=== PATIENT | male | born 1980 | race Caucasian/White ===

== ENCOUNTER 2017-05-09 11:02 | Emergency (ER) | payer MEDICAID ==
[2017-05-09 11:23] VITALS: BP 151/70
--- NOTE | 2017-05-09 11:24 | UC ---
Upper Extremity HPI - HPI Summary HPI Summary: 36 YEAR OLD MALE PRESENTS WITH COMPLAINS OF RIGHT ARM PAIN AFTER FALLING. - History of Current Complaint Chief Complaint: UCUpperExtremity Stated Complaint: RIGHT ARM INJURY Time Seen by Provider: 05/09/17 11:24 Hx Obtained From: Patient ?: Yes Onset/Duration: Sudden Onset Severity Initially: Moderate Severity Currently: Moderate Pain Scale Used: 0-10 Numeric - 5 - Allergies/Home Medications Allergies/Adverse Reactions: Allergies Allergy/AdvReac Type Severity Reaction Status Date / Time No Known Allergies Allergy Verified 05/09/17 11:18 Home Medications: Home Medications Ibuprofen [Advil] 400 mg PO ONCE PRN 05/09/17 [History Confirmed 05/09/17] PMH/Surg Hx/FS Hx/Imm Hx Previously Healthy: Yes - Surgical History Surgical History: Yes Surgery Procedure, Year, and Place: left shoulder operation 6 yrs ago - Family History Known Family History: Positive: Cardiac Disease - Social History Alcohol Use: Occasionally Alcohol Amount: a few beers daily Substance Use Type: None Smoking Status (MU): Heavy Every Day Tobacco Smoker Amount Used/How Often: 1 ppd Length of Time of Smoking/Using Tobacco: started about age 19 Review of Systems Constitutional: Negative Skin: Negative Eyes: Negative ENT: Negative Respiratory: Negative Cardiovascular: Negative Gastrointestinal: Negative Genitourinary: Negative Motor: Negative Neurovascular: Negative Musculoskeletal: Decreased ROM, Other: - RIGHT ELBOW PAIN Neurological: Negative Psychological: Negative All Other Systems Reviewed And Are Negative: Yes Physical Exam Triage Information Reviewed: Yes Appearance: Pain Distress Vital Signs: Initial Vital Signs Temp 37.1 C 05/09/17 11:19 Pulse 92 05/09/17 11:19 Resp 18 05/09/17 11:19 BP 151/70 05/09/17 11:19 Pulse Ox 97 05/09/17 11:19 Vital Signs Reviewed: Yes Eye Exam: Normal ENT Exam: Normal Dental Exam: Normal Neck exam: Normal Neck: Positive: 1 Respiratory Exam: Normal Cardiovascular Exam: Normal Abdominal Exam: Normal Musculoskeletal: Positive: Other: - RIGHT ELBOW PAIN Neurological Exam: Normal Psychological Exam: Normal Skin Exam: Normal Upper Extremity Course/Dx - Course Course Of Treatment: radiology report reviwed and radial head fx results discussed with patient with orthopedic f/u - Differential Dx/Diagnosis Provider Diagnoses: RIGHT ELBOW PAIN WITH RADIAL HEAD FRACTURE. Discharge - Discharge Plan Condition: Stable Disposition: HOME Prescriptions: Acetaminop/Codeine 30 MG TAB* [Tylenol/Codeine 30 MG TAB*] 1 tab PO Q8H PRN #9 tab MDD 3 PRN Reason: Pain Ibuprofen TAB* [Motrin TAB* 800 MG] 800 mg PO Q6H #30 tab Patient Education Materials: Elbow Fracture (ED) Referrals: No Primary Care Phys,NOPCP [Primary Care Provider] - Ismael Rahman MD [Medical Doctor] -
[2017-05-09] MEDS: Acetaminop/Codeine 30 MG TAB* 1 TAB (300 MG/30 MG) PO ONE (11:32)
--- NOTE | 2017-05-09 11:57 | RAD ---
Indication: Right hand pain. 4 views of the right hand demonstrates no fracture. No joint effusion is noted. Joint spaces all well-preserved. IMPRESSION: No fracture of the right hand is noted.
--- NOTE | 2017-05-09 12:01 | RAD ---
HISTORY: Fall from skateboard, right forearm pain COMPARISONS: None VIEWS: 4, Frontal, lateral, and oblique views of the right elbow FINDINGS: Evaluation is somewhat limited by obliquity. BONE DENSITY: Normal. BONES: There is minimally displaced fracture of the radial head. JOINTS: There is a small joint effusion. ALIGNMENT: There is no dislocation. SOFT TISSUES: Unremarkable. OTHER FINDINGS: None. IMPRESSION: MINIMALLY DISPLACED RADIAL HEAD FRACTURE
--- NOTE | 2017-05-09 12:04 | RAD ---
Indication: Right wrist pain 3 views of the wrist demonstrates no fracture. No other bone or joint abnormality is identified. IMPRESSION: NO FRACTURE OF THE WRIST IS NOTED.
== END 2017-05-09 12:32 | disposition home or self-care (01) ==
LOC: UCCORT 11:02
DX: S52.121A Displaced fracture of head of right radius, initial encounter for closed fracture (principal); W19.XXXA Unspecified fall, initial encounter; Y93.9 Activity, unspecified; Y92.9 Unspecified place or not applicable; F17.210 Nicotine dependence, cigarettes, uncomplicated
CPT/HCPCS: 99213; A9270-GY; G0463

== ENCOUNTER 2018-11-30 08:09 | Emergency (ER) | payer MEDICAID, OTHER ==
[2018-11-30 08:34] VITALS: BP 145/86
--- NOTE | 2018-11-30 09:10 | UC ---
General HPI - HPI Summary HPI Summary: States he has had two days of flu like symptoms, subjective fevers, and nausea. No vomiting or diarrhea. Body aches. Minimal cough. No sore throat or congestion. No rash. NO urinary symptoms. Diffuse abdominal discomfort. Takes he never gets sick and has been taking ibuprofen - including today. Two days ago he took two engorged ticks off his scalp, unclear how long they were there for. 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 Meds: reviewed - History of Current Complaint Chief Complaint: UCGeneralIllness Stated Complaint: NAUSEA,CHILLS Time Seen by Provider: 11/30/18 08:56 Pain Intensity: 6 - Allergy/Home Medications Allergies/Adverse Reactions: Allergies Allergy/AdvReac Type Severity Reaction Status Date / Time No Known Allergies Allergy Verified 11/30/18 08:34 PMH/Surg Hx/FS Hx/Imm Hx Previously Healthy: Yes - Surgical History Surgical History: Yes Surgery Procedure, Year, and Place: left shoulder operation 6 yrs ago - Family History Known Family History: Positive: Cardiac Disease - Social History Alcohol Use: None Alcohol Amount: a few beers daily Substance Use Type: None Smoking Status (MU): Heavy Every Day Tobacco Smoker Amount Used/How Often: 1 ppd Length of Time of Smoking/Using Tobacco: started about age 19 Review of Systems All Other Systems Reviewed And Are Negative: Yes Constitutional: Positive: Fever, Chills, Fatigue Gastrointestinal: Positive: Nausea Physical Exam Triage Information Reviewed: Yes Appearance: Well-Appearing Vital Signs: Initial Vital Signs Temp 97.5 F 11/30/18 08:29 Pulse 75 11/30/18 08:29 Resp 18 11/30/18 08:29 BP 145/86 11/30/18 08:29 Pulse Ox 99 11/30/18 08:29 Eyes: Positive: Conjunctiva Clear ENT: Positive: Normal ENT inspection Neck: Positive: Supple, Nontender Respiratory: Positive: Lungs clear, Normal breath sounds Cardiovascular: Positive: RRR, No Murmur Abdomen Description: Positive: Nontender, Soft Skin Exam: Normal, Other - unable to visualize scalp well due to thick long hair Course/Dx - Course Course Of Treatment: This is a 38 yr old with flu like symptoms and recent tick bites Assessment Concerning for lyme. Patient can't stay for labs. Discussed likely false negative as it may be too soon to show positive results Plan Start Doxycycline 100 mg 2x/day for 10 days Your symptoms should start to improve over the next 1-2 days if this is lyme If your symptoms do not improve or worsen despite treatment recommend follow up with your PCP or return to urgent care Rest, fluids and ibuprofen as needed for pain/fever Discussed Blood pressure is elevated and recommending recheck and if remains elevated to follow up with PCP - Diagnoses Provider Diagnosis: Lyme disease Discharge - Sign-Out/Discharge Documenting (check all that apply): Patient Departure All imaging exams completed and their final reports reviewed: No Studies - Discharge Plan Condition: Good Disposition: HOME Prescriptions: DOXYcycline CAP(*) [DOXYcycline 100MG CAP(*)] 100 mg PO BID #20 cap Patient Education Materials: Lyme Disease (ED) Referrals: No Primary Care Phys,NOPCP [Primary Care Provider] - Additional Instructions: Start Doxycycline 100 mg 2x/day for 10 days Your symptoms should start to improve over the next 1-2 days if this is lyme If your symptoms do not improve or worsen despite treatment recommend follow up with your PCP or return to urgent care Rest, fluids and ibuprofen as needed for pain/fever - Billing Disposition and Condition Condition: GOOD Disposition: Home
== END 2018-11-30 09:10 | disposition home or self-care (01) ==
LOC: UCCORT 08:09
DX: A69.20 Lyme disease, unspecified (principal); J11.1 Influenza due to unidentified influenza virus with other respiratory manifestations; R50.9 Fever, unspecified; R11.0 Nausea; F17.210 Nicotine dependence, cigarettes, uncomplicated
CPT/HCPCS: 99212; G0463